=== PATIENT | female | born 1940 | race Caucasian/White ===

== ENCOUNTER → 2016-07-06 | Outpatient (CLI) | payer OTHER ==
[~2016-07-06] MED LIST: ASPI81TA28 PO; CHOL1CAP67 PO; DENOINJ INJ; DIPH-437 PO; GOSE3.6I IM; LISI10TA PO; OMEGCAP2 PO; SIMV40TA4 PO; TPRSR/50 PO
[2016-07-06 13:28] LABS: BLOOD UREA NITROGEN 29 mg/dl (7-18); BUN/CREATININE RATIO 19.3 (10-20); CARBON DIOXIDE 29 mmol/L (21-32); CHLORIDE 100 mmol/L (98-107); GLUCOSE 90 mg/dl (70-99); POTASSIUM 4.7 mmol/L (3.5-5.1); SODIUM 139 mmol/L (136-145)
== END | disposition home or self-care (01) ==
LOC: C.LABMFLN 13:42
PROVIDERS: ATTEND Family Medicine
DX: I10 Essential (primary) hypertension (principal); E78.00 Pure hypercholesterolemia, unspecified; E55.9 Vitamin D deficiency, unspecified; E21.3 Hyperparathyroidism, unspecified; E83.52 Hypercalcemia

== ENCOUNTER → 2016-09-04 | Outpatient (CLI) | payer OTHER ==
[2016-09-04 13:36] LABS: ALT/SGPT 51 U/L (12-78); AST/SGOT 44 U/L (15-37); BLOOD UREA NITROGEN 70 mg/dl (7-18); BUN/CREATININE RATIO 33.2 (10-20); CARBON DIOXIDE 32 mmol/L (21-32); CHLORIDE 93 mmol/L (98-107); GLUCOSE 110 mg/dl (70-99); MAGNESIUM 2.5 mg/dl (1.8-2.4); POTASSIUM 4.3 mmol/L (3.5-5.1); SODIUM 135 mmol/L (136-145)
[2016-09-04 13:47] LABS: ALKALINE PHOSPHATASE 76 U/L (45-117)
== END | disposition home or self-care (01) ==
LOC: C.LABMFLN 08:24
PROVIDERS: ATTEND Family Medicine
DX: I42.9 Cardiomyopathy, unspecified (principal); R53.83 Other fatigue; R13.10 Dysphagia, unspecified; E87.1 Hypo-osmolality and hyponatremia